=== PATIENT | female | born 1985 | race Hispanic/Latino ===

== ENCOUNTER 2016-05-15 06:53 | Day surgery (SDC) | payer OTHER ==
[~2016-05-15] VITALS: Ht 152.4 cm; Wt 51.9 kg
[2016-05-15] VITALS (10 sets, daily range): BP systolic 96–113; BP diastolic 46–63; PULSE 63–99; RESP 13–19; O2SAT 100
[~2016-05-15 06:53] MED LIST: Lactated Ringer's 1,000 ML IV ONE
[2016-05-15] MEDS ORDERED: fentaNYL-PF 50 mCg/mL 2 mL Inj ONE (06:54)
[2016-05-15] MEDS ORDERED: Dexamethasone 4 mg/mL Inj ONE (06:54)
[2016-05-15] MEDS ORDERED: Ondansetron 2 mg/mL 2 mL Inj ONE (06:54)
[2016-05-15] MEDS ORDERED: Lidocaine PF 1% 30 mL Inj ONE (06:54)
[2016-05-15] MEDS ORDERED: Propofol 10,000 mCg/mL 20 mL Inj ONE (06:54)
[2016-05-15] MEDS ORDERED: Phenylephrine/NS 100 mCg/mL 10 mL Syringe IVPUSH ONE (06:54)
[2016-05-15] MEDS ORDERED: EPHEDrine/NS 5 mg/mL 5 mL Syringe ONE (06:54)
[2016-05-15] MEDS ORDERED: Lactated Ringer's 1,000 ML IV SCH (08:22)
[2016-05-15] MEDS ORDERED: Lactated Ringer's 500 ML IV PRN (08:22)
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
[2016-05-15] MEDS ORDERED: Dexamethasone 4 mg/mL Inj IVPUSH PRN (08:25)
[2016-05-15] MEDS ORDERED: Phenylephrine 10,000 mCg/mL Inj IVPUSH PRN (08:25)
[2016-05-15] MEDS ORDERED: fentaNYL-PF 50 mCg/mL 2 mL Inj IVPUSH PRN (08:25)
[2016-05-15] MEDS ORDERED: Atropine 0.4 mg/mL Inj IVPUSH PRN (08:25)
[2016-05-15] MEDS ORDERED: EPHEDrine Sulfate 50 mg/mL Inj IVPUSH PRN (08:25)
[2016-05-15] MEDS ORDERED: Ondansetron 2 mg/mL 2 mL Inj IVPUSH PRN (08:25)
[2016-05-15] MEDS ORDERED: hydrALAZINE 20 mg/mL Inj IVPUSH PRN (08:25)
[2016-05-15] MEDS ORDERED: Labetalol 5 mg/mL 4 mL Inj IV PRN (08:25)
[2016-05-15] MEDS ORDERED: MetoCLOpramide 5 mg/mL 2 mL Inj IVPUSH PRN (08:25)
[2016-05-15] MEDS ORDERED: HYDROmorphone 1 mg/mL Inj IVPUSH PRN (08:25)
[2016-05-15] MEDS ORDERED: Lidocaine 2%-Epi 1:100,000 20 mL Inj INFILTRATE ONE (08:47)
[2016-05-15] MEDS ORDERED: Ropivacaine-PF 0.5% 30 mL Inj INJ ONE (09:05)
--- NOTE | 2016-05-15 09:25 | PCM.ANEP1 ---
Post Anesthesia Phase 1 PACU Phase 1 Assessment Date of Service: May 15, 2016 Vital Signs Vital Signs Date Time Temp Pulse Resp B/P Pulse Ox O2 Delivery O2 Flow Rate FiO2 05/15/16 09:15 74 14 106/58 100 Simple Mask 8 05/15/16 09:13 36.7 75 16 113/52 100 Simple Mask 8 05/15/16 07:30 36.0 63 18 99/63 100 Room Air Anesthetic Administered: GA Level of Alertness: Sleepy, easy to arouse WHIPPLE's with Equal Strength: Yes Pain: No Nausea or Vomiting: No Oxygen Delivery: Simple Mask Lungs: Normal Air Movement Hasmukh Green MD May 15, 2016 09:24
--- NOTE | 2016-05-15 09:58 | PCM.ANEP2 ---
Post Anesthesia Evaluation ASA/CMS Post Anesthesia Date of Service: May 15, 2016 VS in Patient's Normal Range?: Yes Resp Stable; Airway Patent?: Yes CV Function & Hydration Stable: Yes Mental Status Recovered?: Yes Pain control Satisfactory?: Yes N/V Control Satisfactory?: Yes Hasmukh Green MD May 15, 2016 09:58
[2016-05-15] MEDS ORDERED: oxyCODONE-Acetamin 5-325 mg Tablet PO ONE ×2 (10:13→10:30)
[2016-05-15] MEDS ORDERED: oxyCODONE-Acetamin 5-325 mg Tablet PO PRN (10:30)
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
== END 2016-05-15 23:59 | disposition home or self-care (01) ==
LOC: SAS 06:53
PROVIDERS: ATTEND Orthopaedic Surgery
DX: L91.0 Hypertrophic scar (principal); M62.89 Other specified disorders of muscle; S81.011S Laceration without foreign body, right knee, sequela; Z87.828 Personal history of other (healed) physical injury and trauma; Z85.528 Personal history of other malignant neoplasm of kidney; Z90.5 Acquired absence of kidney
CPT/HCPCS: 29877; J1100; J2250; J2370; J2405; J2765; J2795; J7120